=== PATIENT | male | born 1995 | race Caucasian/White ===

== ENCOUNTER 2020-07-09 02:37 | Emergency (ER) | payer SELFPAY ==
[~2020-07-09] VITALS: Ht 188 cm; Wt 59.1 kg
[~2020-07-09 02:37] MED LIST: MOTRIN800 MG PO; TAM75CAP OR
[2020-07-09 03:23] LABS: HEMATOCRIT 41.4 % (39.0-50.0); HEMOGLOBIN 14.1 g/dl (14.0-18.0); IMMATURE GRANULOCYTES 0.3 % (0.0-5.0); MEAN CELL VOLUME 86.3 fL CALC (80.0-100.0); MEAN CORPUSCULAR HGB 29.4 pG CALC (26.0-32.0); MEAN CORPUSCULAR HGB CONC 34.1 g/dL CAL (32.0-36.0); NEUT# 11.74 thou/uL (1.82-7.42); RED BLOOD COUNT 4.8 mill/uL (4.70-6.10); RED CELL DISTRI WIDTH 12.2 % (11.5-15.5)
[2020-07-09 03:27] LABS: ANION GAP 13 (6-22 (CALC)); BUN 8 mg/dL (9-20); BUN/CREATININE RATIO 13 (12-20 (CALC)); CARBON DIOXIDE 24 mmol/l (22-30); CHLORIDE 105 mmol/l (95-108); CREATININE 0.6 mg/dL (0.7-1.3); GFR > 60 ML/MIN (>=60 (CALC)); GFR FOR AFR.AMER. > 60 ML/MIN (>=60 (CALC)); POTASSIUM 3.6 mmol/l (3.5-5.1); SGOT/AST 24 u/l (17-59); SODIUM 138 mmol/l (137-146)
[2020-07-09 03:30] LABS: BILIRUBIN, TOTAL 0.9 mg/dL (0.0-1.4); TOTAL PROTEIN 7.3 g/dL (6.3-8.2)
[2020-07-09 03:31] LABS: ALBUMIN 4.5 g/dL (3.2-5.0); ALKALINE PHOSPHATASE 60 u/l (38-126)
[2020-07-09 03:35] LABS: D-DIMER 0.17 mg/L (0.19-0.60)
[2020-07-09 03:38] LABS: MYOGLOBIN 14 ng/mL (0 - 121)
[2020-07-09 03:43] LABS: ACT PARTIAL THROMBO TIME 23.1 SECONDS (20.0-32.5); INTERNATIONAL NORMALIZED RATIO 1.2 RATIO (0.7-1.3); PROTHROMBIN TIME 11.4 SECONDS (9.0-12.5)
[2020-07-09] MEDS ORDERED: TORADOL PO (04:02)
[2020-07-09 07:30] VITALS: BP 125/70
== END 2020-07-09 08:13 | disposition home or self-care (01) | DRG 206 ==
LOC: ED 02:37
PROVIDERS: Family Medicine
DX: M94.0 Chondrocostal junction syndrome [Tietze] (principal)
CPT/HCPCS: J2060